=== PATIENT | female | born 1980 | race Caucasian/White ===

== ENCOUNTER 2024-03-10 23:18 | Emergency (ER) | payer SELFPAY ==
[2024-03-10 23:24] VITALS: BP 210/100; PULSE 74; TEMP 36.5; O2SAT 95; BMI 43.3
[2024-03-10 23:25] VITALS: O2SAT 95
--- NOTE | 2024-03-10 23:31 | ECG_ITS ---
[facility] Test Date: 2024-03-10 Pat Name: JOHN COCHRAN Department: Room: - Gender: Female Customer Service Consultant: : 1980 Requested By: [id number] Order Number: [id number] Reading MD: APRIL JUÁREZ Measurements Intervals [place] Rate: 59 P: 50 DC: 192 QRS: -26 QRSD: 98 T: 95 QT: 446 QTc: 445 Interpretive Statements 1100 Sinus rhythm 4068 Nonspecific Twave abnormality 6220 Possible left atrial enlargement 7202 Moderate left axis deviation 9130 borderline ECG No previous ECG available for comparison Electronically Signed On 03-11-2024 20:27:55 EDT by APRIL JUÁREZ
--- NOTE | 2024-03-10 23:31 | XR_ITS ---
The [address] [address] Patient Name: JOHN COCHRAN MRN: [id number] date: 1980 Sex: F Assigned Patient Location: ER Current Patient Location: Accession/Order Number: [id number] Exam Date: 03/10/2024 23:50 Report Date: 03/11/2024 02:55 At the request of: BRIELLE PALENCIA Procedure: XR chest 1V EXAMINATION:XR chest 1V INDICATION:chest pain COMPARISON:None TECHNIQUE:A single frontal view of the chest is submitted. FINDINGS: The cardiac silhouette is enlarged. The pulmonary vascularity is within normal limits. The lungs are clear based on chest radiography. There is no costophrenic angle blunting. XR/XR chest 1V IMPRESSION: Cardiac enlargement. No definitive acute airspace disease. Electronically authenticated by: JOHN JON Date: 03/11/2024 02:55
[2024-03-10 23:34] VITALS: PULSE 64
[2024-03-10 23:40] VITALS: PULSE 67
--- NOTE | 2024-03-10 23:40 | ED.CHESTPAI1 ---
HPI - Chest Pain General Chief Complaint: Chest Pain Stated Complaint: CHEST PAIN Time Seen by Provider: 03/10/24 23:27 Source: patient Mode of arrival: Wheelchair Limitations: no limitations History of Present Illness HPI narrative: patient with past history of HTN. Has moved to [place] from [place] but has not gotten established with a new PCP. Describes chest pain on and off over the past couple of months. Pain more intense on and off over the past couple of days and radiates into her back. Was sweaty at home. No dyspnea. She vapes nicotine. No headache or dizziness. Has not taken any HTN medication she has not chest pain at this time Related Data Home Medications ?Medication ?Instructions ?Recorded ?Confirmed No Known Home Medications 03/10/24 03/10/24 Allergies Allergy/AdvReac Type Severity Reaction Status Date / Time No Known Drug Allergies Allergy Verified 03/10/24 23:24 Review of Systems ROS Status of ROS 10 or more systems reviewed and unremarkable except as noted in history and below Exam Constitutional Vital Signs, click to edit/add: Last Vital Signs Temp 97.7 F 03/10/24 23:24 Pulse 71 03/11/24 00:50 Resp 22 H 03/11/24 00:50 BP 184/84 H 03/11/24 00:53 Pulse Ox 95 03/10/24 23:25 O2 Del Method Room Air 03/10/24 23:24 Common normals: no apparent distress, average body habitus, oriented x3, no limitations, healthy appearing, alert and well nourished [facility] Common normals: normocephalic and head/scalp atraumatic Eye Common normals: EOMs intact bilaterally and conjunctivae normal Respiratory Common normals: normal respiratory effort, no retractions, no use of accessory muscles and clear to auscultation bilaterally Cardio Common normals: regular rate, regular rhythm, S1 normal heart sound and S2 normal heart sound GI Common normals: Normal to inspection, nondistended, normoactive bowel sounds present, soft to palpation and non-tender Extremity Common normals: normal to inspection Neuro Common normals: oriented x3, CN's II-XII intact bilaterally, moves all extremities and no focal motor deficits Psych Appearance: grossly normal Course Vital Signs Vital signs: Vital Signs Temperature 97.7 F 03/10/24 23:24 Pulse Rate 74 03/10/24 23:24 Respiratory Rate 18 03/10/24 23:24 Blood Pressure 210/100 H 03/10/24 23:24 Pulse Oximetry 95 03/10/24 23:24 Oxygen Delivery Method Room Air 03/10/24 23:24 Temperature 97.7 F 03/10/24 23:24 Pulse Rate 71 03/11/24 00:50 Respiratory Rate 22 H 03/11/24 00:50 Blood Pressure 184/84 H 03/11/24 00:53 Pulse Oximetry 95 03/10/24 23:25 Oxygen Delivery Method Room Air 03/10/24 23:24 MDM - Chest Pain MDM Narrative Medical decision making narrative: patient with past history of enlarged heart and HTN. has not taken Hypertensive meds for a couple of months since she moved from [place]. Chest pain on and off for 2 months. Chest pain more intense on and off over the past 3 days including radiating into her back. xray demonstrates cardiomegaly and BNP is elevated. troponin is neg. EKG NSR with nonspecific ST-T changes. Patient advised she should stay in the hospital. She insist on leaving and did not want to be hospitalized. States in the past she was on Valsartan and metoprolol. BP improved from 210 systolic to 184 systolic. Patient provided a prescription of Diovan 160 and Toprol 25 and discharged home. Advised to follow up with the online advertising manager physician Dr Lynn. No recurrence of chest pain during her time in the department Lab Data Labs: Lab Results 03/10/24 Range/Units 23:40 WBC 9.4 (4.0-11.0) 10^3/uL RBC 4.61 (4.20-5.40) 10^6/uL Hgb 13.7 (12.0-16.0) g/dL Hct 40.4 (36.0-48.0) % MCV 87.6 (81.0-99.0) fL MCH 29.7 (26.7-34.0) pg MCHC 33.9 (29.9-35.2) g/dL RDW 12.7 (11.0-15.0) % Plt Count 253 (150-450) 10^3/uL MPV 10.7 (9.5-13.5) fL Neut % (Auto) 66.6 (43.0-75.0) % Lymph % (Auto) 23.2 (20.5-60.0) % [place] % (Auto) 4.8 (1.7-12.0) % Eos % (Auto) 4.2 (0.9-7.0) % Baso % (Auto) 0.8 (0.2-2.0) % Neut # (Auto) 6.3 (1.4-6.5) 10^3/uL Lymph # (Auto) 2.2 (1.2-3.8) 10^3/uL [place] # (Auto) 0.5 (0.3-0.8) 10^3/uL Eos # (Auto) 0.4 (0.0-0.7) 10^3/uL Baso # (Auto) 0.1 (0.0-0.1) 10^3/uL Abs Immat Gran (auto) 0.04 H (0.00-0.03) 10^3/uL Imm/Tot Granulo (auto) 0.4 (0.0-0.5) % Sodium 138 (136-145) mmol/L Potassium 4.4 (3.5-5.1) mmol/L Chloride 105 (98-107) mmol/L Carbon Dioxide 29.5 (21.0-32.0) mmol/L Anion Gap 7.9 BUN 16.0 (7.0-18.0) mg/dL Creatinine 1.39 H (0.55-1.02) mg/dL Est GFR ( Amer) 49 L (>=60) Est GFR (Non-Af Amer) 41 L (>=60) BUN/Creatinine Ratio 11.5 Glucose 109 H (74-106) mg/dL Calcium 8.7 (8.5-10.1) mg/dL Troponin I High Sens 40.7 (4.0-51.3) pg/mL NT-Pro-B Natriuret Pep 1856.0 H* (<=450.0) pg/mL Discharge Plan Discharge Chief Complaint: Chest Pain Clinical Impression: Chest pain, Cardiomegaly, Hypertension Patient Disposition: Home, Self-Care Prescriptions / Home Meds: No Action No Known Home Medications Print Language: Urdu Instructions: Chest Pain (ED), Dilated Cardiomyopathy (DC), Hypertension (ED) Additional Instructions: follow up with Dr Lynn next week Referrals: Physician,Non-Staff, MD [Primary Care Provider] - 1 week
[2024-03-10 23:50] VITALS: PULSE 64
[2024-03-10 23:56] LABS: Basophils Absolute Auto 0.1 10^3/uL (0.0-0.1); Basophils Percent Auto 0.8 % (0.2-2.0); Eosinophils Absolute Auto 0.4 10^3/uL (0.0-0.7); Eosinophils Percent Auto 4.2 % (0.9-7.0); Hematocrit 40.4 % (36.0-48.0); Hemoglobin 13.7 g/dL (12.0-16.0); Immature Granulocytes Abs Auto 0.04 10^3/uL (0.00-0.03); Immature Granulocytes Pct Auto 0.4 % (0.0-0.5); Lymphocytes Absolute Auto 2.2 10^3/uL (1.2-3.8); Lymphocytes Percent Auto 23.2 % (20.5-60.0); Mean Corpuscular HGB Conc 33.9 g/dL (29.9-35.2); Mean Corpuscular Hemoglobin 29.7 pg (26.7-34.0); Mean Corpuscular Volume 87.6 fL (81.0-99.0); Mean Platelet Volume 10.7 fL (9.5-13.5); Monocytes Absolute Auto 0.5 10^3/uL (0.3-0.8); Monocytes Percent Auto 4.8 % (1.7-12.0); Neutrophils Absolute Auto 6.3 10^3/uL (1.4-6.5); Neutrophils Percent Auto 66.6 % (43.0-75.0); Platelet Count 253 10^3/uL (150-450); Red Blood Count 4.61 10^6/uL (4.20-5.40); Red Cell Distribution Width 12.7 % (11.0-15.0); White Blood Count 9.4 10^3/uL (4.0-11.0)
[2024-03-11] VITALS (8 sets, daily range): BP systolic 166–184; BP diastolic 82–84; PULSE 58–72; O2SAT 100
[2024-03-11] MEDS: HYDRALAZINE HCL 20 MG/ML VIAL 5 MG IVP (00:10)
[2024-03-11 00:22] LABS: Anion Gap 7.9; BUN Creatinine Ratio 11.5; Calcium 8.7 mg/dL (8.5-10.1); Carbon Dioxide 29.5 mmol/L (21.0-32.0); Chloride 105 mmol/L (98-107); Estimated GFR (African America 49 (>=60); Estimated GFR (Non-African Ame 41 (>=60); Glucose 109 mg/dL (74-106); Potassium 4.4 mmol/L (3.5-5.1); Sodium 138 mmol/L (136-145); Troponin I High Sensitivity 40.7 pg/mL (4.0-51.3)
== END 2024-03-11 02:15 | disposition home or self-care (01) ==
PROVIDERS: Emergency Provider Internal Medicine
DX: R07.9 Chest pain, unspecified (principal); I10 Essential (primary) hypertension; I51.7 Cardiomegaly; F17.290 Nicotine dependence, other tobacco product, uncomplicated
CPT/HCPCS: 36415; 71045; 80048; 83880; 84484; 85025; 93005; 96374; 99285; J0360

== ENCOUNTER 2024-10-23 12:46 | Outpatient (OUT) | payer OTHER, SELFPAY ==
--- NOTE | 2024-10-23 12:48 | MM_ITS ---
Patient Name: JOHN COCHRAN MR#: [id number] : 1980 Exam Date: 10/23/2024 Ordering Doctor: DARIN ALVARADO [facility] RADIOLOGY REPORT PROCEDURE: MM TOMOSYNTHESIS SCREENING BI COMPARISON: None. INDICATIONS: Screening for malignant neoplasm Calculator Name NCI Breast Cancer Risk Assessment Tool 5 Year Breast Cancer Risk 0.80% Lifetime Breast Cancer Risk 8.50% Personal Breast Cancer No Personal Ovarian Cancer No Treatments None Family Cancers None LOCATION: [facility] BREAST COMPOSITION: There are scattered areas of fibroglandular density. FINDINGS: DIAGNOSTIC CATEGORY 1--NEGATIVE. RIGHT BREAST: No significant suspicious finding. LEFT BREAST: No significant suspicious finding. RECOMMENDATIONS: ROUTINE MAMMOGRAM AND CLINICAL EVALUATION IN 12 MONTHS. PLEASE NOTE: A NORMAL MAMMOGRAM DOES NOT EXCLUDE THE POSSIBILITY OF BREAST CANCER. A CLINICALLY SUSPICIOUS PALPABLE LUMP SHOULD BE BIOPSIED. Dictated by: Raj Segura DO on 10/24/2024 at 15:45 Approved by: Raj Segura DO on 10/24/2024 at 15:51
== END 2024-10-23 12:47 | disposition home or self-care (01) ==
LOC: MAMMO 12:46
PROVIDERS: PCP Nurse Practitioner Family; Visit Provider Nurse Practitioner Family
DX: Z12.31 Encounter for screening mammogram for malignant neoplasm of breast (principal)
CPT/HCPCS: 77063; 77067